=== PATIENT | female | born 1995 | race Caucasian/White ===

== ENCOUNTER 2016-12-15 14:28 | Emergency (ER) | payer OTHER ==
[~2016-12-15] VITALS: Ht 157.5 cm; Wt 93.1 kg
[2016-12-15 14:36] VITALS: Ht 157.5 cm; Wt 93.1 kg
[2016-12-15] MEDS ORDERED: ONDANSETRON INJ 2 MG/ML 2 ML VIAL IV STA (15:18)
[2016-12-15] MEDS ORDERED: SODIUM CHLORIDE 0.9% 1000ML 1,000 ML IV STA (15:18)
[2016-12-15] MEDS ORDERED: MoRPHine SULFATE 4 MG/ML 1 ML CARP\\VIAL ONE (15:27)
[2016-12-15] MEDS ORDERED: MoRPHine SULFATE 10 MG/ML CARP/VIAL IV PRN (15:30)
[2016-12-15] MEDS ORDERED: OPTIRAY 320 IV PRN (15:30)
[2016-12-15 15:56] LABS: URINE APPEARANCE CLOUDY (CLEAR); URINE BILIRUBIN NEG (NEG); URINE COLOR YELLOW; URINE EPITHELIAL CELL AUTO >30 /lpf (0-5); URINE NITRITE NEG (NEG); URINE SPECIFIC GRAVITY 1.026 (1.000-1.030); UROBILINOGEN NEG (NEG)
[2016-12-15 16:00] LABS: BASO % 0.2 %; BASO ABS # 0.03 K/uL (0-0.2); COMPLETE YES; EOS % 0.3 %; HEMATOCRIT 44.9 % (37-47); IG% 0.2 %; LYMPH % 19.2 %; LYMPH ABS # 2.37 K/uL (1.2-3.4); MEAN CELL VOLUME 95.3 fL (80-100); MEAN CORPUSCULAR HEMOGLOBIN 32.1 pg (25-34); MEAN CORPUSCULAR HGB CONC 33.6 g/dl (32-36); MONO % 5.5 %; NEUT % 74.6 %; PLATELET COUNT 279 K/uL (130-400); RED BLOOD COUNT 4.71 M/uL (4.2-5.4); WHITE BLOOD COUNT 12.32 K/uL (4.8-10.8)
[2016-12-15 16:05] LABS: MANUAL MICROSCOPIC REQUIRED? NO; REVIEW REQ? YES
[2016-12-15 16:19] LABS: ALT/SGPT 22 U/L (12-78); BLOOD UREA NITROGEN 10 mg/dl (7-18); BUN/CREATININE RATIO 10.8 (10-20); CALCIUM 9.1 mg/dl (8.5-10.1); CARBON DIOXIDE 25 mmol/L (21-32); CHLORIDE 105 mmol/L (98-107); CREATININE 0.91 mg/dl (0.60-1.20); GLUCOSE 84 mg/dl (70-99); POTASSIUM 3.6 mmol/L (3.5-5.1); SODIUM 141 mmol/L (136-145)
[2016-12-15 16:22] LABS: ALKALINE PHOSPHATASE 80 U/L (45-117); AST/SGOT 11 U/L (15-37)
[2016-12-15] MEDS ORDERED: PROM25TA16 PO (16:37)
[2016-12-15 18:05] LABS: URINE APPEARANCE CLEAR (CLEAR); URINE BILIRUBIN NEG (NEG); URINE COLOR YELLOW; URINE NITRITE NEG (NEG); URINE PH 6.5 (4.5-7.5); UROBILINOGEN NEG (NEG); ZZUR CULT IF INDIC CLEAN CATCH NO
[2016-12-15 18:09] LABS: MANUAL MICROSCOPIC REQUIRED? NO
[2016-12-15 18:12] LABS: REVIEW REQ? NO
--- NOTE | 2016-12-15 18:31 | DIAGNOSTIC IMAGING REPORT ---
CT OF THE ABDOMEN AND PELVIS WITH CONTRAST CLINICAL HISTORY: Right-sided abdominal pain. Evaluate for acute appendicitis. COMPARISON STUDY: None. TECHNIQUE: Following IV administration of 120 mL of Optiray-320, axial images of the abdomen and pelvis were obtained from the lung bases to the proximal femurs. Images were reviewed in the axial, sagittal, and coronal planes. IV contrast was administered without complication. Oral contrast was administered. CT DOSE: 1293.12 mGy.cm FINDINGS: The liver, spleen, adrenal glands, kidneys and pancreas are normal. There is no peripancreatic or pericholecystic infiltration. There is no hydronephrosis. The caliber and wall thickness of small and large bowel are normal. The appendix is normal. There is no free fluid. There is no lymphadenopathy. Note is made of a 3.5 x 1.8 cm oval-shaped water attenuation abnormality posterior to the right ovary. Skeletal structures are unremarkable. IMPRESSION: 1. Normal appendix. 2. 3.5 x 1.8 cm oval-shaped water attenuation abnormality posterior to the right ovary. This could reflect an ovarian/paraovarian. A hydrosalpinx could appear similar although is considered less likely. Electronically signed by: Francisco Ramirez M.D. 12/15/2016 6:29 PM Dictated Date/Time: 12/15/2016 6:23 PM
[2016-12-15 19:04] VITALS: BP 126/63; PULSE 72; TEMP 36.9; O2SAT 97
--- NOTE | 2016-12-16 00:24 | EMERGENCY ROOM VISIT NOTE ---
ED Visit Note First contact with patient: 15:07 Chief Complaint: Abdominal pain. History of Present Illness: Ms. Villanueva is a 21 year-old white female complaining of right lower quadrant abdominal pain. Historically patient reports previous ovarian cyst. Patient reports a acute onset of right lower quadrant abdominal pain that started approximately 4 days ago. Since that time the pain has been constant but has waxed and waned in intensity. She has been seen by her PCP, Dr. Recinos , twice for her pain and was referred to the ED for further evaluation and care. Currently she places her discomfort just superior and lateral to McBurney's point. She is unable to describe her pain. She rates her discomfort 6/10. Pain is nonradiating. She reports her pain worsens approximately 2-3 hours after eating. She has not identified any alleviating factors related to the pain. She has taken one dose of ibuprofen this morning without relief of her discomfort. Associated with her pain she reports she has been nauseated but has not vomited and she has had a couple episodes of diarrhea. Patient denies fevers, chills, sweats, skin eruptions, skin color changes, upper respiratory tract symptoms, shortness of breath, chest pain, rectal bleeding, black/tarry stools, urinary symptoms, hematuria, vaginal bleeding, vaginal discharge, back/flank pain. Review of Systems: As noted above in history of present illness. All body systems were reviewed and found to be negative as noted above. Past Medical History: As previously noted. Current Medications: Zofran Allergies to Medications: Patient denies. Social History: Patient is employed; she lives with her boyfriend feels safe in her home environment; she admits to tobacco use and denies alcohol use. Physical Examination: Vital Signs: Date Time Temp Pulse Resp B/P Pulse Ox O2 Delivery O2 Flow Rate FiO2 12/15/16 19:04 36.9 72 20 126/63 97 Room Air 12/15/16 19:04 70 20 126/63 97 12/15/16 17:36 80 20 127/87 96 Room Air 12/15/16 16:12 79 12/15/16 14:36 36.9 86 20 125/81 96 Room Air GENERAL: 21-year-old female in mild distress due to pain, nontoxic-appearing, afebrile and hemodynamically stable. NEUROLOGICAL: Awake, alert and oriented to person, place and time. Answering questions appropriately and following commands. Normal gait. Good hand eye coordination. SKIN: Warm, dry and pink. No soft tissue eruptions or trauma noted. HEENT: Atraumatic and normocephalic. PERRL. Sclera white and conjunctiva pink. Oral cavity moist and pink. Pharynx is nonerythematous or edematous. Speech normal. No lymphadenopathy. Trachea midline. No jugular venous distention. BACK: No tenderness over the bony spine. No CVA tenderness. THORAX: Lungs sounds are clear to auscultation and equal bilaterally with symmetrical chest wall. No wheezing, rales or rhonchi. No crepitus, tenderness , subcutaneous air or deformities noted. HEART: Regular rate and rhythm. No gallops, rubs or murmurs are appreciated. ABDOMEN: Obese and soft with mild tenderness superiorly just lateral to McBurney 's point. Positive bowel sounds in all quadrants. No guarding, rigidity or organomegaly. EXTREMITIES: Moves all extremities well on command and with purpose. All distal neurovascular statuses are intact and equal bilaterally. ED Course: Patient is assessed as noted above. Laboratory Testing: Test 12/15/16 15:15 12/15/16 17:40 Range/Units White Blood Count 12.32 4.8-10.8 K/uL Red Blood Count 4.71 4.2-5.4 M/uL Hemoglobin 15.1 12.0-16.0 g/dL Hematocrit 44.9 37-47 % Mean Corpuscular Volume 95.3 80-100 fL Mean Corpuscular Hemoglobin 32.1 25-34 pg Mean Corpuscular Hemoglobin Concent 33.6 32-36 g/dl Platelet Count 279 130-400 K/uL Mean Platelet Volume 11.0 7.4-10.4 fL Neutrophils (%) (Auto) 74.6 % Lymphocytes (%) (Auto) 19.2 % Monocytes (%) (Auto) 5.5 % Eosinophils (%) (Auto) 0.3 % Basophils (%) (Auto) 0.2 % Neutrophils # (Auto) 9.18 1.4-6.5 K/uL Lymphocytes # (Auto) 2.37 1.2-3.4 K/uL Monocytes # (Auto) 0.68 0.11-0.59 K/uL Eosinophils # (Auto) 0.04 0-0.5 K/uL Basophils # (Auto) 0.03 0-0.2 K/uL RDW Standard Deviation 46.6 36.4-46.3 fL RDW Coefficient of Variation 13.4 11.5-14.5 % Immature Granulocyte % (Auto) 0.2 % Immature Granulocyte # (Auto) 0.02 0.00-0.02 K/uL Urine Color YELLOW YELLOW Urine Appearance CLOUDY CLEAR CLEAR Urine pH 7.0 6.5 4.5-7.5 Urine Specific Kinney 1.026 1.000 1.000-1.030 Urine Protein NEG NEG NEG Urine Glucose (UA) NEG NEG NEG Urine Ketones TRACE NEG NEG Urine Occult Blood NEG NEG NEG Urine Nitrite NEG NEG NEG Urine Bilirubin NEG NEG NEG Urine Urobilinogen NEG NEG NEG Urine Leukocyte Esterase SMALL NEG NEG Urine WBC (Auto) >30 0-5 /hpf Urine RBC (Auto) 0-4 0-4 /hpf Urine Hyaline Casts (Auto) 5-10 0-5 /lpf Urine Epithelial Cells (Auto) >30 0-5 /lpf Urine Bacteria (Auto) 2+ NEG Urine Test NEG NEG Sodium Level 141 136-145 mmol/L Potassium Level 3.6 3.5-5.1 mmol/L Chloride Level 105 98-107 mmol/L Carbon Dioxide Level 25 21-32 mmol/L Anion Gap 11.0 3-11 mmol/L Blood Urea Nitrogen 10 7-18 mg/dl Creatinine 0.91 0.60-1.20 mg/dl Est Creatinine Clear Calc Drug Dose 102.2 ml/min Estimated GFR () 103.1 Estimated GFR (Non- 88.9 BUN/Creatinine Ratio 10.8 10-20 Random Glucose 84 70-99 mg/dl Calcium Level 9.1 8.5-10.1 mg/dl Total Bilirubin 0.3 0.2-1 mg/dl Direct Bilirubin < 0.1 0-0.2 mg/dl Aspartate Amino Transf (AST/SGOT) 11 15-37 U/L Alanine Aminotransferase (ALT/SGPT) 22 12-78 U/L Alkaline Phosphatase 80 45-117 U/L Total Protein 7.7 6.4-8.2 gm/dl Albumin 4.0 3.4-5.0 gm/dl Lipase 116 73-393 U/L Contrast Abdominal/Pelvic CT: Was reviewed by myself and read by the radiologist and shows normal-appearing solid organs, normal-appearing appendix, no free fluid or air, no lymphadenopathy, oval-shaped water attenuated area over the posterior ovary consistent with a possible ovarian cyst or possible hydrosalpinx. Patient was hydrated with normal saline and she received 4 mg of morphine IV and 4 mg of Zofran IV. Patient was reassessed multiple times during her stay in the emergency department. Patient's case was reviewed with Dr. Parker; we agreed on diagnostic approach, treatment, disposition and plan. Patient was educated about malik's findings and instructed on her treatment plan; she verbalizes understanding and agreement with this plan. Clinical Impression: Acute right lower quadrant abdominal pain. Decision-Making: Initially my differential diagnosis I considered appendicitis , ovarian torsion, ovarian cyst rupture, ectopic , constipation, urinary tract infection, kidney stone and other causes. Disposition: Patient discharged home in stable condition accompanied by her ; prior to departure she was reassessed and subjectively reported she was feeling better and rated her discomfort 2/10. Plan: Patient was encouraged to alternate ibuprofen and acetaminophen as needed for pain every 3 hours. Patient was encouraged to stay well-hydrated. Patient was encouraged to follow-up with her [facility] physician for ovarian cyst. Patient was encouraged return ED for uncontrolled pain, fevers, vomiting or any new/concerning symptoms.
== END 2016-12-15 19:05 | disposition home or self-care (01) ==
LOC: C.EDB 14:29 → C.EDA 19:05
DX: R10.31 Right lower quadrant pain (principal); R19.7 Diarrhea, unspecified; Z72.0 Tobacco use